=== PATIENT | female | born 1985 | race African-American/Black ===

== ENCOUNTER 2018-06-12 18:45 | Inpatient (IN) | payer OTHER ==
[2018-06-12 20:57] VITALS: BMI 41.7
[2018-06-12 21:09] LABS: BASO % 0.4 % (0-2.0); EOS % 1.6 % (0-4.5); HEMATOCRIT 32.3 % (32.4-45.2); HEMOGLOBIN 11.2 GM/dL (10.7-15.3); LYMPH % 23.4 % (8-40); MCH 31.2 pg (25.7-33.7); MCHC 34.6 g/dl (32.0-36.0); MEAN CELL VOLUME 90.2 fl (80-96); MEAN PLT VOLUME 10.6 fl (7.5-11.1); MONO % 9.2 % (3.8-10.2); NEUT % 65.4 % (42.8-82.8); PLATELET COUNT 171 K/MM3 (134-434); RBC 3.58 M/mm3 (3.60-5.2); RDW 15.3 % (11.6-15.6)
[2018-06-12] MEDS ORDERED: DEXTROSE 5%-LACTATED RINGERS 1,000 ML IV SCH (21:15)
[2018-06-12 21:22] LABS: INR 1.01 (0.83-1.09); PROTHROMBIN TIME (PATIENT) 11.9 SEC (9.7-13.0)
[2018-06-12 21:25] LABS: ACTIVATED PTT 24.7 SECONDS (25.2-36.5)
[2018-06-12 21:31] LABS: ANION GAP 10 MMOL/L (8-16); BLOOD UREA NITROGEN 5 mg/dL (7-18); CALCIUM 8.7 mg/dL (8.5-10.1); CHLORIDE 104 mmol/L (98-107); CO2 23 mmol/L (21-32); CREATININE 0.4 mg/dL (0.55-1.3); GLUCOSE,RANDOM 96 mg/dL (74-106); POTASSIUM 3.7 mmol/L (3.5-5.1); SODIUM 136 mmol/L (136-145)
--- NOTE | 2018-06-12 21:31 | HP ---
Past Medical History - Primary Care Physician PCP:: Kalina Hinojosa - Admission Chief Complaint: Gestational Hypertension. IUP at 39 weeks History of Present Illness: 33 yo EDC 06/14/18 EGA 39.2 weeks admitted due to gestational hypertension. Hx of obesity GBS positive and x 2 No rom bleeding or pain History Source: Patient Limitations to Obtaining History: No Limitations - Past Medical History ...: 6 ...Para: 2 ...Term: 2 ...: 0 ...Spon : 1 ...Induced : 3 ...Multiple Gestation: 0 ...LMP: 09/10/17 ...EDC by Dates: 06/17/18 ...EDC by Sono: 06/14/18 Psych: Yes: Anxiety - Past Surgical History Past Surgical History: Yes: None Hx Myomectomy: No Hx Transabdominal Cerclage: No - Smoking History Smoking history: Never smoked Have you smoked in the past 12 months: No Aproximately how many cigarettes per day: 0 - Alcohol/Substance Use Hx Alcohol Use: No History of Substance Use: reports: None Home Medications - Allergies Allergies/Adverse Reactions: Allergies Allergy/AdvReac Type Severity Reaction Status Date / Time No Known Allergies Allergy Verified 08/24/17 10:21 - Home Medications Home Medications: Ambulatory Orders Iron 1 tab PO DAILY 06/12/18 Vitamins (Sjr) - 1 tab PO DAILY 06/12/18 Review of Systems - Review of Systems Constitutional: reports: No Symptoms Eyes: reports: No Symptoms HENT: reports: No Symptoms Neck: reports: No Symptoms Cardiovascular: reports: No Symptoms Respiratory: reports: No Symptoms Gastrointestinal: reports: No Symptoms Genitourinary: reports: No Symptoms Breasts: reports: No Symptoms Reported Musculoskeletal: reports: No Symptoms Integumentary: reports: No Symptoms Neurological: reports: No Symptoms Endocrine: reports: No Symptoms Hematology/Lymphatic: reports: No Symptoms Psychiatric: reports: No Symptoms Physical Exam - Maternity Vital Signs: Vital Signs Temperature 98.5 F 06/12/18 19:15 Pulse Rate 93 H 06/12/18 21:00 Respiratory Rate 20 06/12/18 21:00 Blood Pressure 132/65 06/12/18 21:00 O2 Sat by Pulse Oximetry (%) Constitutional: Yes: Well Nourished, No Distress Neck: Yes: WNL Cardiovascular: Yes: WNL, Regular Rate and Rhythm Lungs: Clear to auscultation - Abdominal Exam/OB Number of Fetuses: Single Presentation: Vertex Contractions: No Monitor Mode: External Heart Rate (range): 165 Category: I Accelerations: Non-Uniform Decelerations: None - Vaginal Exam/OB Dilatation (cm): closed Effacement (%): 50 Amniotic Membrane Status: Intact Presentation: Vertex/Position Station: -1 - Physical Exam Musculoskeletal: Yes: WNL Extremities: Yes: WNL Edema: No Integumentary: Yes: WNL Psychiatric: Yes: WNL, Alert, Oriented - Labs Lab Results: CBC, BMP 06/12/18 20:15 Hemorrhage Risk Assessment - Risk Factors Risk Score: 0 Risk Level: Low Risk Problem List - Problems (1) Gestational hypertension Code(s): O13.9 - GESTATIONAL HTN W/O SIGNIFICANT PROTEINURIA, UNSP TRIMESTER (2) 39 weeks gestation of Code(s): Z3A.39 - 39 WEEKS GESTATION OF (3) Obesity affecting in third trimester Code(s): O99.213 - OBESITY COMPLICATING , THIRD TRIMESTER Assessment/Plan IUP at 39 weeks gestational hypertension obesity tachycardia Plan IV fluids cervidil if heart rate comes down
[2018-06-12] MEDS ORDERED: BUTORPHANOL TARTRATE 1 MG/ML VIAL IVPB ONE (21:35)
[2018-06-12] MEDS ORDERED: PROMETHAZINE HCL 25 MG/1 ML VIAL IVPUSH ONE (21:35)
[2018-06-12] MEDS ORDERED: ELECTROLYTE-148 SOLN 1,000 ML IV SCH (21:45)
[2018-06-12] MEDS ORDERED: DINOPROSTONE 10 MG VAGINAL SUPPOSITORY VG ONE (22:24)
[2018-06-13] MEDS ORDERED: AMPICILLIN SODIUM 2 GM VIAL ONE (07:14)
[2018-06-13] MEDS ORDERED: AMPICILLIN - 2 GM in SODIUM CHLORIDE 100 ML IVPB ONE (07:30)
--- NOTE | 2018-06-13 10:03 | PN ---
Ante-Partal Exam - Subjective Subjective: Pt feeling some cramping overnight. Vital Signs: Vital Signs Temperature 98.1 F 06/13/18 09:00 Pulse Rate 74 06/13/18 09:00 Respiratory Rate 20 06/13/18 09:00 Blood Pressure 120/68 06/13/18 09:00 O2 Sat by Pulse Oximetry (%) Bleeding: No Headache: No Visual changes: No Right upper quadrant pain: No - Contractions Contractions: Yes Regularity: Irregular Intensity: Mild/Mod Monitor Mode: External - Exam during Labor Category: I Monitor Accelerations: Present Monitor Decelerations: None Exam: Vaginal Dilatation (cm): 2.5 Effacement (%): 70 Amniotic Membrane Status: Intact Presentation: Vertex Station: -2 - Assessment/Plan Assessment/Plan: 33 with SIUP, 39 weeks, IOL for gestational HTN cervidil removed to start pitocin after breakfast continue induciton BPs normal to mild range overnight, pt asymptomatic, continue to monitor
[2018-06-13] MEDS ORDERED: OXYTOCIN 20 UNITS in 0.9% NS 20 UNIT/1,000 ML INFUS.BAG IV ONE ×3 (10:08→23:54)
[2018-06-13] MEDS ORDERED: OXYTOCIN 30 UNITS in 0.9% NS 30 UNIT/500 ML INFUS.BAG IVPB SCH (10:15)
[2018-06-13] MEDS ORDERED: AMPICILLIN SODIUM 1 GM VIAL ONE ×2 (11:24→19:02)
[2018-06-13] MEDS: AMPICILLIN - 1 GM in SODIUM CHLORIDE 100 ML IVPB SCH ×3 (11:31→19:19)
[2018-06-13] MEDS ORDERED: BUTORPHANOL TARTRATE 1 MG/ML VIAL ONE ×2 (19:01)
[2018-06-13] MEDS ORDERED: PROMETHAZINE HCL 25 MG/1 ML VIAL ONE (19:01)
[2018-06-13] MEDS ORDERED: ACETAMINOPHEN 325 MG TABLET (FP) PO PRN (22:20)
[2018-06-13] MEDS ORDERED: BISACODYL 10 MG SUPP.RECT RC PRN (22:20)
[2018-06-13] MEDS ORDERED: BENZOCAINE 20% 57 GM BOTTLE TP PRN (22:20)
[2018-06-13] MEDS ORDERED: BENZOCAINE 28 GM HEMORRHOIDAL OINTMENT TP PRN (22:20)
[2018-06-13] MEDS ORDERED: IBUPROFEN 600 MG TABLET (FP) PO PRN (22:20)
[2018-06-13] MEDS ORDERED: METHYLERGONOVINE MALEATE 0.2 MG/1 ML AMP IM PRN (22:20)
[2018-06-13] MEDS ORDERED: WITCH HAZEL 50% (TUCKS) 40 PAD/JAR PAD TP PRN (22:20)
--- NOTE | 2018-06-13 22:20 | PN ---
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
[2018-06-13] MEDS ORDERED: OXYTOCIN 20 UNITS in 0.9% NS 20 UNIT/1,000 ML INFUS.BAG IV SCH (22:30)
[2018-06-14 07:18] LABS: BASO % 0.3 % (0-2.0); EOS % 0.5 % (0-4.5); HEMATOCRIT 32.7 % (32.4-45.2); HEMOGLOBIN 11.2 GM/dL (10.7-15.3); LYMPH % 12.9 % (8-40); MCH 31.1 pg (25.7-33.7); MCHC 34.2 g/dl (32.0-36.0); MEAN CELL VOLUME 90.9 fl (80-96); MEAN PLT VOLUME 10.7 fl (7.5-11.1); MONO % 7.9 % (3.8-10.2); NEUT % 78.4 % (42.8-82.8); PLATELET COUNT 180 K/MM3 (134-434); RBC 3.59 M/mm3 (3.60-5.2); RDW 15.1 % (11.6-15.6); WHITE BLOOD COUNT 12.2 K/mm3 (4.0-10.0)
[2018-06-14] MEDS: PRENATAL VITAMINS W/ FOLIC ACID TABLET (FP) PO SCH (10:37)
--- NOTE | 2018-06-14 11:39 | PN ---
Post Progress Note - Subjective Subjective: Pt seen/examined and doing well. no complaints. Pain controlled, VB minimal. Christine COELHO/RUQ pain/changes in vision. Type of Delivery: Vital Signs: Vital Signs Temperature 99.1 F 06/14/18 09:11 Pulse Rate 93 H 06/14/18 09:11 Respiratory Rate 18 06/14/18 09:11 Blood Pressure 115/60 06/14/18 09:11 O2 Sat by Pulse Oximetry (%) 100 06/13/18 23:15 Uterus: Yes: Fundus Firm Incision: Yes: Dressing dry and intact Abdomen/GI: Yes: Abdomen soft Lochia: Yes: Rubra Lochia, amount: Small Extremities: Yes: Calves non-tender. No: Edema Perineum: Yes: Intact Activity: Ambulating - Labs Labs: CBC WBC 12.2 K/mm3 (4.0-10.0) H 06/14/18 06:30 RBC 3.59 M/mm3 (3.60-5.2) L 06/14/18 06:30 Hgb 11.2 GM/dL (10.7-15.3) 06/14/18 06:30 Hct 32.7 % (32.4-45.2) 06/14/18 06:30 MCV 90.9 fl (80-96) 06/14/18 06:30 MCH 31.1 pg (25.7-33.7) 06/14/18 06:30 MCHC 34.2 g/dl (32.0-36.0) 06/14/18 06:30 RDW 15.1 % (11.6-15.6) 06/14/18 06:30 Plt Count 180 K/MM3 (134-434) 06/14/18 06:30 MPV 10.7 fl (7.5-11.1) 06/14/18 06:30 Absolute Neuts (auto) 9.6 K/mm3 (1.5-8.0) H 06/14/18 06:30 Neutrophils % 78.4 % (42.8-82.8) 06/14/18 06:30 Lymphocytes % 12.9 % (8-40) D 06/14/18 06:30 Monocytes % 7.9 % (3.8-10.2) 06/14/18 06:30 Eosinophils % 0.5 % (0-4.5) 06/14/18 06:30 Basophils % 0.3 % (0-2.0) 06/14/18 06:30 Nucleated RBC % 0 % (0-0) 06/14/18 06:30 Problem List - Problems (1) Gestational hypertension Code(s): O13.9 - GESTATIONAL HTN W/O SIGNIFICANT PROTEINURIA, UNSP TRIMESTER (2) Vaginal delivery Code(s): O80 - ENCOUNTER FOR FULL-TERM UNCOMPLICATED DELIVERY Assessment/Plan regular diet encourage ambulation PO pain meds vitals Q shift routine care
[2018-06-14] MEDS ORDERED: SENNOSIDES/DOCUSATE COMBO (SENNA PLUS) TABLET (UD) PO PRN (22:00)
[2018-06-15 08:29] VITALS: BP 127/89; PULSE 84; TEMP 98
[2018-06-15] MEDS: PRENATAL VITAMINS W/ FOLIC ACID TABLET (FP) PO SCH (10:21)
--- NOTE | 2018-06-15 10:41 | DS ---
Physical Exam-CLOTHES [facility]INGER Vital Signs: Vital Signs Temperature 98 F 06/15/18 08:28 Pulse Rate 84 06/15/18 08:28 Respiratory Rate 20 06/15/18 08:28 Blood Pressure 127/89 06/15/18 08:28 O2 Sat by Pulse Oximetry (%) 100 06/13/18 23:15 Constitutional: Yes: Well Nourished, No Distress Cardiovascular: Yes: WNL Respiratory: Yes: WNL Gastrointestinal: Yes: WNL ....Post : Yes: Uterus firm, Uterus non-tender Breast(s): Yes: WNL Musculoskeletal: Yes: WNL Extremities: Yes: WNL Edema: No Neurological: Yes: WNL, Alert, Oriented Labs: CBC, BMP 06/14/18 06:30 06/12/18 20:15 Delivery - Delivery Vaginal Delivery: No Problems Type of Anesthesia: None Episiotomy/Laceration: None EBL (cc): 250 Delivery, Single - Stages of Labor Date 1st Stage Initiatied: 06/13/18 Time 1st Stage Initiated: 19:15 Date 2nd Stage Initiated: 06/13/18 Time 2nd Stage Initiated: 21:50 Date of Delivery: 06/13/18 Time of Delivery: 22:05 Time Placenta Delivered: 22:10 Placenta: Yes: Spontaneous - Condition of 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 Gender: Female Weight: 8 lb 9 oz Position: Left, OA Total Hours ROM (Hrs/Mins): 4h 5m - 1 Minute Total Score: 9 5 Minutes Total Score: 9 - [place] Feeding Plan Initial Plan: Elected not to breastfeed exclusively throughout hospitalization Discharge Summary Reason For Visit: INDUCTION OF LABOR Current Active Problems 39 weeks gestation of (Acute) Gestational hypertension (Acute) Obesity affecting in third trimester (Acute) Vaginal delivery (Acute) Procedures: Principal: Normal vaginal delivery - Instructions Diet, Activity, Other Instructions: Physical activity Resume your normal everyday activity as tolerated no heavy lifting or exercise until seen by your surgeon. You may walk unlimited penelope of and climb stairs. You may resume driving the car when you feel safe and comfortable behind the wheel. No sexual activity as instructed. Wound care If you have a bandage, leave it on, and keep dry for 48-72 hours. After that time discard the outer bandage. If they are tapes on the skin under the out of bandage leave them in place. They will peel off in the next 7 to 10 days. Do Not Peel them off. You may shower the day after surgery. If there are tapes present on the skin, you may shower over them. Diet There are no dietary restrictions. Eat healthy, high-fiber foods. Drink 6 to 8 glasses of liquid each day. This will assist in keeping your bowels are regular. Pain management You may take Tylenol or acetaminophen or Ibuprofen (for example, Motrin, Advil etc.) from my pain prescription medication is ordered should be taken as prescribed for moderate to severe pain. Call MD for any of the following: Severe pain not relieved by medication Fever of 101 or higher Excessive bleeding or drainage on dressing Inability to urinate Disposition: HOME - Home Medications Comprehensive Discharge Medication List: Ambulatory Orders Iron 1 tab PO DAILY 06/12/18 Vitamins (Sjr) - 1 tab PO DAILY 06/12/18
== END 2018-06-15 13:40 | disposition home or self-care (01) | DRG 560 ==
LOC: JLDR 18:45 → J3W 06-14 00:45
PROVIDERS: ADMIT Obstetrics & Gynecology; ATTEND Obstetrics & Gynecology
PROC: 10E0XZZ Delivery of Products of Conception, External Approach (ICD-10-PCS; principal; 2018-06-13)
PROC: 3E0P7VZ Introduction of Hormone into Female Reproductive, Via Natural or Artificial Opening (ICD-10-PCS; 2018-06-13)
DX: O13.3 Gestational [pregnancy-induced] hypertension without significant proteinuria, third trimester (principal); O76 Abnormality in fetal heart rate and rhythm complicating labor and delivery; O99.824 Streptococcus B carrier state complicating childbirth; O69.81X0 Labor and delivery complicated by cord around neck, without compression, not applicable or unspecified; Z3A.39 39 weeks gestation of pregnancy; Z37.0 Single live birth
CPT/HCPCS: 36415; 59409; 71046-TC-FY; 80048; 85025; 85610; 85730; 86593; 86850; 86900; 86901